=== PATIENT | male | born 1985 | race Caucasian/White ===

== ENCOUNTER → 2017-12-23 09:35 | Day surgery (SDC) | payer OTHER ==
[~2017-12-23 09:35] MED LIST: Atracurium* 10 MG/ML 10 ML VIAL ONE; Bacitracin OINTMENT* 0.5% 0.5 oz TUBE ONE; Bupivacaine 0.25% EPI 200,000* 30 ML SDV ONE; Dexamethasone TAB* 4 MG ONE; DiMENhydriNATE IV* 50 MG/ML VIAL IV PUSH PRN; Famotidine IV* 10 MG/ML 2 ML (20 mg) ONE; Glycopyrrolate IV* 0.2 MG/ML 1 ML VIAL ONE; KETAMINE HCL* 50 MG/ML 10 ML VIAL ONE; Ketorolac INJ* 30 MG/ML 1 ML VIAL ONE; Lidocaine 1% INJ* 10 MG/ML 30 ML SDV ONE; Lidocaine 2% JELLY* 6 ML JELLY TOPICAL ONE; Lidocaine 2% PF * 5 ML VIAL ONE; Midazolam* 1 MG/ML 5 ML VIAL (5 MG) ONE; Morphine INJ* 2 MG/ML 1 ML SYRINGE (TWO MG - NEW SYRINGE VERSION) IV PRN; Naloxone* 0.4 MG/ML 1 ML VIAL IV PRN; Neostigmine Methylsulfate* 1 MG/ML 10 ML VIAL (1 mg/ml) ONE; Ondansetron ODT TAB* 4 MG ONE; PROCHLORPERAZINE INJ 5 MG/ML 2 ML VIAL IV PRN; Propofol* 10 MG/ML 20 ML BTL IV PUSH ONE; fentaNYL* 50 MCG/ML 2 ML VIAL (100 MCG VIAL) IV PRN; fentaNYL* 50 MCG/ML 2 ML VIAL (100 MCG VIAL) ONE; oxyCODONE/Acetamin 5/325 MG* TAB PO PRN
[2017-12-23 12:49] VITALS: BP 135/75
--- NOTE | 2017-12-24 16:31 | OP ---
DATE OF OPERATION: 12/23/17 [facility] DATE OF : 87 SURGEON: Dario Jc MD PACKAGING TECHNICIAN: Karon Zacarias NP ANESTHESIOLOGIST: Fermin Fuentes MD ANESTHESIA: General with local anesthetic. PRE-OP DIAGNOSIS: Anterior perianal mass. POST-OP DIAGNOSES: 1. Anterior perianal mass. 2. Anterior subcutaneous perianal cyst. OPERATIVE PROCEDURE: Anorectal exam under anesthesia with removal of apparent anterior anal verge cyst. INDICATIONS: Mr. Ortiz Vilchis is a 32-year-old gentleman who has noted a fairly discrete nontender lump in the anterior anal verge area that has been present for about a year. It has increased minimally in size causing no discomfort, drainage, redness, or bleeding. An MRI showed what appeared to be a subcutaneous fairly well-defined mass, which was quite superficial and he is now to undergo an elective excision. ESTIMATED BLOOD LOSS: Minimal. WOUND CLASSIFICATION: IV. SPECIMENS: Cyst capsule and fluid from the cyst for Gram stain and culture. FINDINGS: This appeared to be a subcutaneous cyst with a thin wall, which contains some turbid yellow fluid, which was drained and sent for specimen. The cyst abutted the external anal sphincter, but did not involve this and was mainly anterior to the anus and the perineum. DESCRIPTION OF PROCEDURE: Written informed consent was obtained and the patient was taken to the operating room. He was placed in the prone jackknife position after general anesthesia was administered. Sequential compression devices and a warming blanket were applied. Time-out verification was completed. Perineum and perianal area were prepped and draped in the usual sterile fashion. 0.25% Marcaine was infiltrated around the mass in question, which was right at the anterior midline of the anal verge and appeared to be about 2 cm in size and covered with flesh-colored skin. A vertical incision was made and carried down through the skin. Here, we entered what appeared to be a cyst capsule and this was from the overlying skin as I went deeper. I did dissect this off what appeared to be superficial fibers of the anterior external sphincter muscle. I did enter the cyst at one point, which was quite thin walled and there was some turbid, yellow , non-smelling fluid, which was sent for culture. The entire cyst capsule was then excised using sharp dissection, which was mainly in the perineum anterior to the anus. Hemostasis was assured. The area was irrigated. I closed the wound loosely with several layers of 3-0 Vicryl suture. Bacitracin ointment was applied and a sterile dressing was placed. The patient tolerated the procedure well and was taken to the recovery room in stable condition. [id number] #: [id number] MTDD
== END | disposition home or self-care (01) ==
LOC: OR 09:35
PROVIDERS: ATTEND Surgery
DX: K62.89 Other specified diseases of anus and rectum (principal); F41.9 Anxiety disorder, unspecified
CPT/HCPCS: 87070; 87073; 87076; 87077; 87185; 87186; 87205; 88304; A9270-GY; J1885; J2250; J2704; J2710; J3010; J8540